=== PATIENT | female | born 1995 | race Caucasian/White ===

== ENCOUNTER 2016-11-19 16:16 | Emergency (ER) | payer OTHER ==
[2016-11-19 16:44] VITALS: BMI 21.4
--- NOTE | 2016-11-19 16:45 | PDOC ---
History of Present Illness - History of Present Illness Initial Comments: 11/19/16 17:06 Patient is a 20 year old female, , with no significant medical hx who is presenting to the ED with two days of heavy vaginal bleeding and one day of left breast pain. The patient states her left breast pain started this morning and she denies any redness or swelling to the area. She notes that its similar pain to her last episode of mastitis. The patient also states that shes been with her left breast. The patient also complains of heavy vaginal bleeding since her menses that started two days ago. Patient reports passing passing dark, heavy clots. She does not think she's since she had her menses last month as well. The patient also endorses some fever, lower back pain , and leg cramping over the last 24 hours. Her temperature in the ED today is 101.4. Denies abdominal pain, cramping, nausea, vomiting, diarrhea, dysuria, hematuria , frequency, or chills. <Susan Em - Last Filed: 11/19/16 17:17> <Stevie Fountain - Last Filed: 11/26/16 08:25> - General Chief Complaint: Vaginal Bleeding Stated Complaint: PT STATES SHE IS NOT FEELING WELL POSSIBLE MASTIT Time Seen by Provider: 11/19/16 16:38 Past History <Susan Em - Last Filed: 11/19/16 17:17> - Past Medical History Asthma: No Cancer: No Cardiac Disorders: No Diabetes: No HTN: No Seizures: No Thyroid Disease: No Other medical history: PT IS PRESENTLY BREAST FEEDING - Reproductive History Is Patient Now?: No (#): 2 Para: 2 Spontaneous : 0 - Immunization History Immunization Up to Date: Yes - Psycho/Social/Smoking Cessation Hx Anxiety: No Suicidal Ideation: No Smoking History: Never smoked Have you smoked in the past 12 months: No Number of Cigarettes Smoked Daily: 0 Information on smoking cessation initiated: No Hx Alcohol Use: No Drug/Substance Use Hx: No Substance Use Type: None Hx Substance Use Treatment: No <Stevie Fountain - Last Filed: 11/26/16 08:25> - Past Medical History Allergies/Adverse Reactions: Allergies Allergy/AdvReac Type Severity Reaction Status Date / Time No Known Drug Allergies Allergy Verified 11/19/16 17:00 Seafood Allergy Severe Difficulty Uncoded 11/19/16 17:00 Breathing Home Medications: Ambulatory Orders Pnv with Ca,No.71/Iron/FA [ Vitamin Tablet] 1 each PO DAILY 09/22/14 Dicloxacillin Sodium 500 mg PO QID #30 capsule 11/19/16 Review of Systems - Review of Systems Comments:: 11/19/16 17:11 CONSTITUTIONAL: Absent: fever, chills, diaphoresis, generalized weakness, malaise, loss of appetite HEENT: Absent: rhinorrhea, nasal congestion, throat pain, throat swelling, difficulty swallowing, mouth swelling, ear pain, eye pain, visual changes CARDIOVASCULAR: Absent: chest pain, syncope, palpitations, irregular heart rate, lightheadedness , peripheral edema BREAST: Present: left breast pain Absent: swelling, redness RESPIRATORY: Absent: cough, shortness of breath, dyspnea with exertion, orthopnea, wheezing, stridor, hemoptysis GASTROINTESTINAL: Absent: abdominal pain, abdominal distension, nausea, vomiting, diarrhea, constipation, melena, hematochezia GENITOURINARY: Present: vaginal bleeding Absent: dysuria, frequency, urgency, hesitancy, hematuria, flank pain, genital pain MUSCULOSKELETAL: Absent: myalgia, arthralgia, joint swelling SKIN: Absent: rash, itching, pallor HEMATOLOGIC/IMMUNOLOGIC: Absent: easy bleeding, easy bruising, lymphadenopathy, frequent infections ENDOCRINE: Absent: unexplained weight gain, unexplained weight loss, heat intolerance, cold intolerance NEUROLOGIC: Absent: headache, focal weakness or paresthesia, dizziness, unsteady gait, seizure, mental status changes, bladder or bowel incontinence. PSYCHIATRIC: Absent: anxiety, depression, suicidal or homicidal ideation, hallucinations <Susan Em - Last Filed: 11/19/16 17:17> *Physical Exam - Vital Signs Last Vital Signs Temp Pulse Resp BP Pulse Ox 101.4 F H 109 H 18 92/49 98 11/19/16 16:17 11/19/16 16:17 11/19/16 16:17 11/19/16 16:17 11/19/16 16:17 - Physical Exam Comments: 11/19/16 17:17 GENERAL: Well developed, well nourished. Awake and alert. No acute distress. HEENT: Normocephalic, atraumatic. PERRLA, EOMI. No conjunctival pallor. Sclera are non- icteric. Moist mucous membranes. Oropharynx is clear. NECK: Supple. Full ROM. No JVD. Carotid pulses 2+ and symmetric, without bruits. No thyromegaly. No lymphadenopathy. BREAST: Left breast approximately 1-2 oclock there is swelling and tenderness without any warmth or erythema. No nipple discharge. No axillary nodes palpable. CARDIOVASCULAR: Regular rate and rhythm. No murmurs, rubs, or gallops. Distal pulses are 2+ and symmetric. PULMONARY: No evidence of respiratory distress. Lungs clear to auscultation bilaterally. No wheezing, rales or rhonchi. ABDOMINAL: Soft. Non-tender. Non-distended. No rebound or guarding. No organomegaly. Normoactive bowel sounds. MUSCULOSKELETAL: Normal range of motion at all joints. No bony deformities or tenderness. No CVA tenderness. EXTREMITIES: No cyanosis. No clubbing. No edema. No calf tenderness. SKIN: Warm and dry. Normal capillary refill. No rashes. No jaundice. NEUROLOGICAL: Alert, awake, appropriate. Cranial nerves 2-12 intact. Normal speech. Gait is normal without ataxia. PSYCHIATRIC: Cooperative. Good eye contact. Appropriate mood and affect. <Susan Em - Last Filed: 11/19/16 17:17> - Vital Signs Last Vital Signs Temp Pulse Resp BP Pulse Ox 100.4 F H 109 H 18 92/49 98 11/19/16 16:17 11/19/16 16:17 11/19/16 16:17 11/19/16 16:17 11/19/16 16:17 <Stevie Fountain - Last Filed: 11/26/16 08:25> ED Treatment Course - LABORATORY CBC & Chemistry Diagram: 11/19/16 16:55 11/19/16 16:30 <Susan Em - Last Filed: 11/19/16 17:17> - LABORATORY CBC & Chemistry Diagram: 11/19/16 16:55 11/19/16 16:30 <Stevie Fountain - Last Filed: 11/26/16 08:25> Medical Decision Making - Medical Decision Making 11/19/16 18:52 Rest swelling, tenderness, fatigue, myalgias, and fever, are most likely all related to early mastitis. However, other family members have had a flulike illness, and this is also a possibility. Blood cultures and lactic acid were drawn. White blood count is 17,000 but otherwise CBC, chemistries, and urinalysis are clear. test is negative. Antibiotics begun. Advised to continue breast-feeding, check with anesthesia attending and [employer] physicians as soon as possible. Return to ER if symptoms worsen. Fully ambulatory and in no significant pain or other discomfort upon discharge with her family to follow-up with her private physician as soon as possible. 11/26/16 08:24 <Stevie Fountain - Last Filed: 11/26/16 08:25> *DC/Admit/Observation/Transfer - Attestations Scribe Attestion: 11/19/16 17:13 Documentation prepared by Susan Em, acting as manager medical for Stevie Higgins MD. <Susan Em - Last Filed: 11/19/16 17:17> - Discharge Dispostion Admit: No <Stevie Fountain - Last Filed: 11/26/16 08:25> Diagnosis at time of Disposition: Mastitis - Discharge Dispostion Disposition: HOME Condition at time of disposition: Stable - Prescriptions Prescriptions: Dicloxacillin Sodium 500 mg PO QID #30 capsule - Referrals Referrals: Armando Matthew MD [Staff Physician] - 1 week - Patient Instructions Printed Discharge Instructions: DI for Mastitis
[2016-11-19] MEDS ORDERED: SODIUM CHLORIDE 1,000 ML IV STA ×2 (17:05→19:35)
[2016-11-19] MEDS ORDERED: ACETAMINOPHEN 325 MG TABLET (FP) ONE (17:05)
[2016-11-19] MEDS ORDERED: ACETAMINOPHEN 325 MG TABLET (FP) PO ONE (17:05)
[2016-11-19 17:20] LABS: MCH 30.3 pg (25.7-33.7); MCHC 34.1 g/dl (32.0-36.0); MEAN CELL VOLUME 88.9 fl (80-96); MEAN PLT VOLUME 8.9 fl (7.5-11.1); PLATELET COUNT 305 K/MM3 (134-434); WHITE BLOOD COUNT 17.3 K/mm3 (4.0-10.8)
[2016-11-19 17:37] LABS: ALBUMIN 4.4 g/dl (3.5-5.0); ALK PHOS 133 U/L (32-92); ANION GAP 9 (8-16); BILIRUBIN,TOTAL 0.7 mg/dl (0.2-1.0); CALCIUM 9.6 mg/dl (8.4-10.2); CO2 25 mmol/L (22-28); CREATININE 0.7 mg/dl (0.6-1.3); GLUCOSE,RANDOM 120 mg/dl (74-106); SGOT/AST 22 U/L (10-42); SGPT/ALT 18 U/L (10-40); TOT PROT 7.7 g/dl (6.4-8.3)
[2016-11-19] MEDS ORDERED: NAFCILLIN - 1 GM in DEXTROSE 5%-WATER - 100 ML IVPB ONE (17:43)
[2016-11-19 17:44] LABS: COCKROFT - GAULT NT
[2016-11-19 17:48] LABS: URINE APPEARANCE Clear; URINE BILIRUBIN Negative (NEGATIVE); URINE GLUCOSE (UA) Negative (NEGATIVE); URINE KETONE Negative (NEGATIVE); URINE LEUK ESTERASE Negative (NEGATIVE); URINE NITRITE Negative (NEGATIVE); URINE PROTEIN Negative (NEGATIVE); URINE UROBILINOGEN 0.2 E.U/dl (0.2-1.0)
[2016-11-19 17:51] LABS: URINE BLOOD 2+ (NEGATIVE); URINE COLOR YELLOW
--- NOTE | 2016-11-19 19:21 | PDOC ---
*Physical Exam - Vital Signs Last Vital Signs Temp Pulse Resp BP Pulse Ox 99.8 F H 97 H 16 99/68 98 11/19/16 18:07 11/19/16 18:07 11/19/16 18:07 11/19/16 18:07 11/19/16 16:17 ED Treatment Course - LABORATORY CBC & Chemistry Diagram: 11/19/16 16:55 11/19/16 16:30 - ADDITIONAL ORDERS Additional order review: Laboratory Results 11/19/16 11/19/16 16:55 16:30 Sodium 137 Potassium 3.7 Chloride 103 Carbon Dioxide 25 Anion Gap 9 BUN 12 Creatinine 0.7 Creat Clearance w eGFR > 60 Random Glucose 120 H Calcium 9.6 Total Bilirubin 0.7 AST 22 ALT 18 Alkaline Phosphatase 133 H Total Protein 7.7 Albumin 4.4 Urine Color Yellow Urine Appearance Clear Urine pH 7.0 D Ur Specific [place] 1.010 Urine Protein Negative Urine Glucose (UA) Negative Urine Ketones Negative Urine Blood 2+ H Urine Nitrite Negative Urine Bilirubin Negative Urine Urobilinogen 0.2 e.u/dl Ur Leukocyte Esterase Negative Urine HCG, Qual Negative 11/19/16 16:55 RBC 4.39 MCV 88.9 MCHC 34.1 RDW 12.0 MPV 8.9 Neutrophils % Y Lymphocytes % Y - Medications Given in the ED: ED Medications Discontinued Medications Generic Name Dose Route Start Last Admin Trade Name Seema PRN Reason Stop Dose Admin Acetaminophen 650 mg 11/19/16 17:05 11/19/16 17:05 Tylenol - PO 11/19/16 17:06 650 mg ONCE ONE Administration Sodium Chloride 1,000 mls @ 1,000 mls/hr 11/19/16 17:05 11/19/16 17:18 Normal Saline - IV 11/19/16 18:04 1,000 mls/hr ASDIR STA Administration Nafcillin Sodium 1 gm/ 100 mls @ 100 mls/hr 11/19/16 17:43 11/19/16 18:20 Dextrose IVPB 11/19/16 18:42 100 mls/hr ONCE ONE Administration Protocol Medical Decision Making - Medical Decision Making 11/19/16 19:35 Care of this patient received from Dr. Pizano. Lactic acid level pending. Recheck of vital signs reveals systolic blood pressure 85; patient continues to be comfortable without new complaints. We will give additional liter of normal saline IV. Lactic acid 1.2. Patient will be discharged with prescription for dicloxacillin. She should continue to nurse; she should follow-up with her general doctor within the next several days and return to the emergency room if she has any worsening symptoms. *DC/Admit/Observation/Transfer Diagnosis at time of Disposition: Mastitis - Discharge Dispostion Disposition: HOME Condition at time of disposition: Stable - Prescriptions Prescriptions: Dicloxacillin Sodium 500 mg PO QID #30 capsule - Referrals Referrals: Armando Matthew MD [Staff Physician] - 1 week - Patient Instructions Printed Discharge Instructions: DI for Mastitis - Post Discharge Activity
[2016-11-19 19:37] VITALS: TEMP 99
[2016-11-19 19:55] LABS: PLATELET ESTIMATE ADEQUATE (NORMAL)
[2016-11-19 20:41] VITALS: BP 93/57; PULSE 88
[2016-11-19 20:57] LABS: URINE BACTERIA 1+ /hpf (NEGATIVE); URINE WBC 0-3 (3-5)
== END 2016-11-19 20:48 | disposition home or self-care (01) ==
LOC: FER 16:16
PROC: 3E03329 Introduction of Other Anti-infective into Peripheral Vein, Percutaneous Approach (ICD-10-PCS; principal; 2016-11-19)
PROC: 3E0337Z Introduction of Electrolytic and Water Balance Substance into Peripheral Vein, Percutaneous Approach (ICD-10-PCS; 2016-11-19)
DX: N61.0 Mastitis without abscess (principal)
CPT/HCPCS: 36415; 80053; 81003; 81015; 83605; 84703; 85025; 87040; 99283-25